=== PATIENT | female | born 2000 | race Caucasian/White ===

== ENCOUNTER → 2020-04-19 13:07 | Outpatient (CLI) | payer OTHER, SELFPAY ==
--- NOTE | ~2020-04-19 | US_ITS ---
EXAMINATION: US right upper quadrant EXAM DATE: 04/19/2020 13:36 INDICATION: Abdominal pain, mid back pain. History of reflux. TECHNIQUE: Multiple grayscale and Doppler images of the abdomen right upper quadrant were obtained (b y a technologist who performed the scan) and subsequently reviewed. There is no prior study for shivam pena. FINDINGS: The pancreatic head and body are normal in appearance. The pancreatic tail is not visualized. The l iver has normal echogenicity and contour. There are 2 focal slightly hyperechoic liver lesions, mirtha acteristic appearance for hemangiomata, but ultrasound is nonspecific. These measure 1.5 x 0.9 x 1.9 cm and 1.2 x 0.9 x 0.8 cm, both probably in the left upper lobe anteriorly. There is no evidence of intrahepatic biliary duct dilation. Portal venous flow was seen in the hepatopedal, normal direction and has normal Doppler waveform. No right-sided hydronephrosis. Common bile duct measures 3 mm, which is normal. The gallbladder wall is normal in thickness, with ex pected amount of distention. No sonographic evidence of pericholecystic fluid. There is no cholelit hiases. Technologist performing exam reports patient did not demonstrate sonographic Shaw's sign. Please note that this sign is less reliable in patients who have received pain medication. IMPRESSION: 1. 2 focal small left liver lobe nonspecific lesions, but most likely benign. Optional 6-12 month fo llow-up right upper quadrant sonogram. 2. No acute findings. Reviewed, dictated and finalized at location B. IMPRESSION: 1. 2 focal small left liver lobe nonspecific lesions, but most likely benign. Optional 6-12 month follow-up right upper quadrant sonogram. 2. No acute findings.
== END ==
PROVIDERS: PCP Family Medicine; Visit Provider Family Medicine
DX: R10.9 Unspecified abdominal pain (principal)
CPT/HCPCS: 76705

== ENCOUNTER → 2020-10-30 10:46 | Outpatient (CLI) | payer OTHER, SELFPAY ==
--- NOTE | ~2020-10-30 | US_ITS ---
EXAMINATION: US right upper quadrant DATE: 10/30/2020 11:08 INDICATION: Liver masses. TECHNIQUE: Multiple grayscale and Doppler ultrasound images of the abdomen were obtained. COMPARISON: Ultrasound 04/19/2020 FINDINGS: The visualized portions of the head and body of the pancreas are normal. There are 2.1 cm a nd 1.5 cm hyperechoic masses in the liver. There is normal flow in main portal vein. The gallbladder is normal in size. No gallstones or wall thickening. There is no sonographic Shaw sign. The common duct is normal and measures 3 mm. IMPRESSION: 1. Two hyperechoic liver masses measuring up to 2.1 cm. In the absence of known malignancy or chronic liver disease, these findings are likely benign masses such as hemangiomas. Reviewed, dictated and finalized at location B. IMPRESSION: 1. Two hyperechoic liver masses measuring up to 2.1 cm. In the absence of known malignancy or chronic liver disease, these findings are likely benign masses s uch as hemangiomas.
== END ==
PROVIDERS: PCP Family Medicine; Visit Provider Family Medicine
DX: K76.9 Liver disease, unspecified (principal)
CPT/HCPCS: 76705